=== PATIENT | female | born 1990 | race Caucasian/White ===

== ENCOUNTER 2020-10-05 10:01 | Inpatient (IN) | payer OTHER ==
[~2020-10-05 10:01] MED LIST: OMEPRAZOLE 20MG20 MG PO; PRENATAL FORMU1 EACH PO; XYZAL5 MG PO
[2020-10-05 23:35] LABS: BILIRUBIN NEGATIVE (NEGATIVE); BLOOD NEGATIVE Ery/uL (NEGATIVE); CLARITY CLEAR (CLEAR); COLOR YELLOW (YELLOW); GLUCOSE (U) NORMAL (NORMAL); HCT 32.5 % (37.0-47.0); HGB 11.1 g/dl (12.5-16.0); LEUKOCYTES 3+ Leu/uL (NEGATIVE); MCH 33.2 pg (25.0-31.0); MCHC 34.2 g/dL (32.0-36.0); MCV 97.3 fL (78.0-100.0); MPV 12.2 fL (6.0-9.5); NITRITE NEGATIVE (NEGATIVE); PROTEIN NEGATIVE (NEGATIVE); RBC 3.34 M/uL (4.20-5.40); RDW 12.4 % (11.5-14.0); UROBILINOGEN 0.2 mg/dL (0.2-1.0)
[2020-10-05 23:49] LABS: BACTERIA 1+
[2020-10-06] MEDS ORDERED: FEOSOL325 MG PO (13:44)
[2020-10-07 06:09] LABS: HCT 32.5 % (37.0-47.0); HGB 10.9 g/dl (12.5-16.0); MCHC 33.5 g/dL (32.0-36.0); MCV 98.5 fL (78.0-100.0); MPV 11.7 fL (6.0-9.5); RBC 3.3 M/uL (4.20-5.40); RDW 12.3 % (11.5-14.0)
== END 2020-10-07 19:35 | disposition home or self-care (01) | DRG 806 ==
LOC: FOB 10:01
PROVIDERS: ADMIT Obstetrics & Gynecology
PROC: 4A1HX4Z Monitoring of Products of Conception, Cardiac Electrical Activity, External Approach (ICD-10-PCS; principal; 2020-10-05)
PROC: 3E0P7VZ Introduction of Hormone into Female Reproductive, Via Natural or Artificial Opening (ICD-10-PCS; 2020-10-05)
PROC: 10E0XZZ Delivery of Products of Conception, External Approach (ICD-10-PCS; 2020-10-06)
PROC: 0KQM0ZZ Repair Perineum Muscle, Open Approach (ICD-10-PCS; 2020-10-06)
DX: O36.0930 Maternal care for other rhesus isoimmunization, third trimester, not applicable or unspecified (principal); O10.92 Unspecified pre-existing hypertension complicating childbirth; Z37.0 Single live birth; D62 Acute posthemorrhagic anemia; Z3A.39 39 weeks gestation of pregnancy; Z79.82 Long term (current) use of aspirin; Z20.822 Contact with and (suspected) exposure to COVID-19; O70.1 Second degree perineal laceration during delivery; J45.909 Unspecified asthma, uncomplicated; O69.81X0 Labor and delivery complicated by cord around neck, without compression, not applicable or unspecified
CPT/HCPCS: 36415; 81001; 86850; 86900; 86901; J7120; U0002

== ENCOUNTER 2020-10-15 18:45 | Emergency (ER) | payer OTHER ==
[~2020-10-15 18:45] MED LIST changes: +FEOSOL325 MG PO
[2020-10-15 19:16] LABS: EOSINOPHIL 2.9 % (0-5); HCT 43.3 % (37.0-47.0); HGB 14.6 g/dl (12.5-16.0); LYMPHOCYTE 30.9 % (15-48); MCH 32.7 pg (25.0-31.0); MCHC 33.7 g/dL (32.0-36.0); MCV 96.9 fL (78.0-100.0); MONOCYTE 4.8 % (0-12); MPV 10.5 fL (6.0-9.5); NEUTROPHIL 60.2 % (41-80); NRBC 0; PLT 286 K/uL (150-400); RBC 4.47 M/uL (4.20-5.40); RDW 12.1 % (11.5-14.0); WBC 9.8 K/uL (4.0-10.5)
[2020-10-15 19:27] LABS: INR 1.02 (0.9-1.2); PROTHROMBIN TIME 12.7 SECONDS (11.4-13.6)
[2020-10-15 19:33] LABS: ALBUMIN 3.7 g/dL (3.4-5.0); BILIRUBIN - TOTAL 0.7 mg/dL (0.2-1.0); BUN/CREAT RATIO (CALC) 11.7 RATIO; CREATININE 0.94 mg/dL (0.51-0.95); POTASSIUM 3.4 mmol/L (3.5-5.1); TOTAL PROTEIN 7.7 g/dL (6.4-8.2)
== END 2020-10-15 20:30 | disposition home or self-care (01) ==
LOC: FER 18:45
PROVIDERS: Emergency Medicine
DX: O72.1 Other immediate postpartum hemorrhage (principal); O90.89 Other complications of the puerperium, not elsewhere classified; R10.84 Generalized abdominal pain
CPT/HCPCS: 36415; 80053; 85025; 85610; 99283

== ENCOUNTER 2021-10-21 07:39 | Emergency (ER) | payer OTHER ==
[2021-10-21] MEDS ORDERED: ZYRTEC10 MG PO (08:06)
[2021-10-21 09:44] LABS: BASOPHIL 0.3 % (0-2); EOSINOPHIL 0 % (0-5); HCT 43.1 % (37.0-47.0); HGB 15.1 g/dl (12.5-16.0); LYMPHOCYTE 12.3 % (15-48); MCH 32.8 pg (25.0-31.0); MCV 93.7 fL (78.0-100.0); MONOCYTE 4.3 % (0-12); MPV 11.1 fL (6.0-9.5); NRBC 0; PLT 183 K/uL (150-400); RDW 11.3 % (11.5-14.0)
[2021-10-21 09:54] LABS: ALBUMIN 4.2 g/dL (3.4-5.0); BILIRUBIN - TOTAL 0.5 mg/dL (0.2-1.0); BUN/CREAT RATIO (CALC) 8.6 RATIO; CREATININE 0.7 mg/dL (0.51-0.95); GLOBULIN (CALCULATION) 3.7 g/dL; POTASSIUM 3.2 mmol/L (3.5-5.1); TOTAL PROTEIN 7.9 g/dL (6.4-8.2)
[2021-10-21] MEDS ORDERED: TESSALON PERLE100 MG PO (10:50)
[2021-10-21] MEDS ORDERED: VENTOLIN HFA18 GM INH (10:50)
== END 2021-10-21 11:12 | disposition home or self-care (01) ==
LOC: FER 07:39
PROVIDERS: Emergency Medicine
DX: R05.9 Cough, unspecified (principal); U09.9 Post COVID-19 condition, unspecified; Z91.012 Allergy to eggs
CPT/HCPCS: 36415; 71250; 80053; 83880; 84145; 84484; 85025; 85379; J7030